=== PATIENT | female | born 1955 | race Caucasian/White ===

== ENCOUNTER → 2017-12-13 | Day surgery (SDC) | payer BC ==
--- NOTE | 2017-12-13 09:47 | MMO ---
STEREOTACTIC BIOPSY LEFT BREAST MICROCALCIFICATIONS and clip placement SURGICAL SPECIMEN MAMMOGRAPHY LEFT DIAGNOSTIC MAMMOGRAM POST BIOPSY: Date: 12/13/17 HISTORY: Abnormal mammogram. Microcalcifications. TECHNIQUE/FINDINGS: After explaining the procedure and answering all questions, the microcalcification cluster at the inf erior aspect of the left breast was visualized from a lateral approach. Sterile technique, buffered l ocal anesthesia, stereotactic guidance, and a lateral approach were used to carefully advance a 10 ga uge vacuum-assisted needle to the level of the microcalcifications. Position was confirmed with stere otactic imaging. A total of 6 core specimens were obtained and eventually submitted to pathology for evaluation. Surgical specimen mammography shows microcalcifications in the specimen. Localization clip was placed in the biopsy bed and position confirmed with stereotactic imaging. Needle was removed. Hemostasis o btained using direct pressure. The patient tolerated the procedure well and was eventually dismissed in good condition. Postprocedure mammography showed scattered fibroglandular densities. Localization clip at the inferio r aspect of the breast is present in region of biopsy. Microcalcifications have been removed. IMPRESSION: Technically successful stereotactic biopsy left breast microcalcifications. Pathology pending. POS: [facility]
== END ==
LOC: MAMMO 07:21
PROVIDERS: ATTEND Family Medicine
PROC: 0HBU3ZX Excision of Left Breast, Percutaneous Approach, Diagnostic (ICD-10-PCS; principal; 2017-12-13)
DX: N60.22 Fibroadenosis of left breast (principal)
CPT/HCPCS: 19081; 76098; 88305; 88341; 88342; 88360